=== PATIENT | male | born 1970 | race Caucasian/White ===

== ENCOUNTER 2018-04-01 10:43 | Emergency (ER) | payer OTHER ==
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
[2018-04-01] MEDS ORDERED: DELTASONE 20 MG PO ONE (11:40)
[2018-04-01] MEDS ORDERED: DELTASONE 20 MG ONE (11:41)
== END 2018-04-01 12:44 | disposition home or self-care (01) ==
LOC: ED 10:43
DX: M54.5 Low back pain (principal); G89.29 Other chronic pain; Z79.899 Other long term (current) drug therapy
CPT/HCPCS: 99283; A9270-GY